=== PATIENT | male | born 1985 | race African-American/Black ===

== ENCOUNTER 2024-07-03 13:33 | Emergency (ER) | payer MEDICAID ==
[~2024-07-03] VITALS: Ht 167.6 cm; Wt 73.0 kg
[2024-07-03 13:40] VITALS: O2SAT 100
[2024-07-03 13:45] VITALS: BP 210/114; PULSE 74; RESP 16; TEMP 98.4; O2SAT 95
[2024-07-03] MEDS: ACETAMINOPHEN 325MG TABLET PO ONE (14:23)
[2024-07-03] MEDS ORDERED: ACET-2708 MT (14:31)
[2024-07-03] MEDS ORDERED: LIDO700A15 TP (14:36)
[2024-07-03] MEDS: KETOROLAC 30MG/ML VIAL IM ONE (14:50)
== END 2024-07-03 14:52 | disposition home or self-care (01) ==
LOC: ER 13:33
DX: M25.511 Pain in right shoulder (principal); J45.909 Unspecified asthma, uncomplicated; W18.30XA Fall on same level, unspecified, initial encounter; Y93.89 Activity, other specified; Y92.89 Other specified places as the place of occurrence of the external cause; Y99.8 Other external cause status
CPT/HCPCS: 73030; 99283; A4565

== ENCOUNTER 2024-08-22 12:13 | Emergency (ER) | payer MEDICAID ==
[~2024-08-22] VITALS: Ht 167.6 cm; Wt 77.2 kg
[~2024-08-22 12:13] MED LIST: ACET-2708 MT; LIDO700A15 TP
[2024-08-22 12:31] VITALS: BP 129/90; PULSE 78; RESP 18; TEMP 36.7; O2SAT 99
== END 2024-08-22 15:11 | disposition home or self-care (01) ==
LOC: ER 12:21
DX: S50.851A Superficial foreign body of right forearm, initial encounter (principal); J45.909 Unspecified asthma, uncomplicated; X58.XXXA Exposure to other specified factors, initial encounter; Y93.89 Activity, other specified; Y92.89 Other specified places as the place of occurrence of the external cause; Y99.8 Other external cause status
CPT/HCPCS: 73090; 99283